=== PATIENT | male | born 1985 | race Caucasian/White ===

== ENCOUNTER 2021-12-08 13:51 | Emergency (ER) | payer BC ==
[~2021-12-08] VITALS: Ht 180.3 cm; Wt 86.0 kg
[2021-12-08] MEDS ORDERED: HYDROCODONE/ACETAMINOPHEN 5/325MG TABLET PO ONE (14:30)
[2021-12-08] MEDS ORDERED: IBUPROFEN 800MG TABLET PO ONE (14:30)
[2021-12-08 15:09] LABS: CHLORIDE 107 mEq/L (98-107)
[2021-12-08 15:12] LABS: BASOPHILS % 0.2 % (0.0-2.0); EOSINOPHILS % 0.5 % (0.0-5.0); LYMPHOCYTES % 10.6 % (20.0-50.0); MEAN CORPUSCULAR VOLUME 90.9 fL (80.0-94.0); MEAN PLATELET VOLUME 8.7 fl (7.4-10.4); MONOCYTES % 6.4 % (2.0-8.0); NEUTROPHILS % 82.3 % (40.0-76.0); PLATELET 238 x1000/uL (130-400); RED BLOOD CELL COUNT 4.51 mill/uL (4.7-6.1); RED CELL DISTRIBUTION WIDTH 13.8 % (11.6-14.6)
[2021-12-08] MEDS ORDERED: MORPHINE SULFATE 4 MG/ML CPJ (NOT FOR IM USE) IV STA (15:33)
[2021-12-08] MEDS ORDERED: ONDANSETRON HCL 4MG/2ML INJ IV STA (15:33)
[2021-12-08 16:05] VITALS: BP 125/71
[2021-12-08] MEDS ORDERED: IBUP-2030 MT (18:13)
[2021-12-08] MEDS ORDERED: IOHEXOL-300 100 ML BOTTLE ONE (19:07)
== END 2021-12-08 19:01 | disposition home or self-care (01) ==
LOC: ER 13:51
DX: M54.50 Low back pain, unspecified (principal)
CPT/HCPCS: 36415; 72131; 74177; 80048; 85025; 96374; 96375; 99285; J2270; J2405; Q9967; Z7610